=== PATIENT | male | born 1960 | race African-American/Black ===

== ENCOUNTER 2019-05-22 02:37 | Emergency (ER) | payer MEDICAID ==
[~2019-05-22] VITALS: Ht 180.3 cm; Wt 100.0 kg
[2019-05-22] MEDS ORDERED: KETOROLAC 60MG/2ML VIAL IM ONE (03:45)
[2019-05-22] MEDS ORDERED: DIAZEPAM 2 MG TABLET PO NR (04:00)
[2019-05-22 04:33] VITALS: BP 125/75
== END 2019-05-22 04:35 | disposition home or self-care (01) ==
LOC: ER 02:37
DX: S13.4XXA Sprain of ligaments of cervical spine, initial encounter (principal); X58.XXXA Exposure to other specified factors, initial encounter; Y93.89 Activity, other specified; Y92.89 Other specified places as the place of occurrence of the external cause; Y99.8 Other external cause status
CPT/HCPCS: 96372; 99283; J1885

== ENCOUNTER 2019-08-05 23:26 | Emergency (ER) | payer MEDICAID ==
[~2019-08-05] VITALS: Ht 182.9 cm; Wt 95.0 kg
[2019-08-06 04:01] VITALS: BP 119/55
== END 2019-08-06 04:01 | disposition home or self-care (01) ==
LOC: ER 23:26
DX: J06.9 Acute upper respiratory infection, unspecified (principal)
CPT/HCPCS: 99282

== ENCOUNTER 2020-03-22 00:25 | Inpatient (IN) | payer MEDICAID ==
[~2020-03-22] VITALS: Ht 185.4 cm; Wt 82.1 kg
[2020-03-22] MEDS ORDERED: ASPIRIN 81MG TABLET PO ONE (01:45)
[2020-03-22 02:05] LABS: BASOPHILS % 0.3 % (0.0-2.0); EOSINOPHILS % 5.5 % (0.0-5.0); HEMATOCRIT. 22.1 % (42.0-52.0); HEMOGLOBIN. 7.8 g/dL (14.0-18.0); LYMPHOCYTES % 63.6 % (20.0-50.0); MEAN CORPUSCULAR HEMOGLOBIN 42.5 pg (28.0-32.0); MEAN CORPUSCULAR VOLUME 120.8 fL (80.0-94.0); MONOCYTES % 2.9 % (2.0-8.0); NEUTROPHILS % 27.7 % (40.0-76.0); RED BLOOD CELL COUNT 1.83 mill/uL (4.7-6.1); RED CELL DISTRIBUTION WIDTH 14.8 % (11.6-14.6)
[2020-03-22 02:08] LABS: CHLORIDE 104 mEq/L (98-107)
[2020-03-22] MEDS ORDERED: FAMOTIDINE 20MG TABLET PO ONE (03:30)
[2020-03-22 05:39] LABS: PLATELET 88 x1000/uL (130-400)
[2020-03-22 05:42] LABS: PLATELET ESTIMATE NORMAL
[2020-03-22 08:00] VITALS: BP 101/56
[2020-03-22 08:35] VITALS: BP 101/56
[2020-03-22] MEDS ORDERED: ONDANSETRON HCL 4MG/2ML INJ IV PRN (11:45)
[2020-03-22] MEDS ORDERED: ACETAMINOPHEN 325MG TABLET PO PRN (11:45)
[2020-03-22 15:23] LABS: CLARITY URINE CLEAR (CLEAR); COLOR URINE YELLOW (YELLOW); KETONES URINE NEGATIVE (NEGATIVE); LEUKOCYTE ESTERASE URINE 2+ (NEGATIVE); NITRITE URINE POSITIVE (NEGATIVE); OCCULT BLOOD URINE TRACE (NEGATIVE); PROTEIN URINE NEGATIVE (NEGATIVE); SPECIFIC GRAVITY URINE 1.012 (1.005-1.030); UROBILINOGEN URINE >8.0 E.U./dL (0.2-1.0)
[2020-03-22 15:32] LABS: *AMPHETAMINES SCREEN URINE NEGATIVE (NEGATIVE); *BARBITURATES SCREEN URINE NEGATIVE (NEGATIVE)
[2020-03-22 15:33] LABS: *BENZODIAZEPINES SCREEN URINE NEGATIVE (NEGATIVE); *COCAINE SCREEN URINE NEGATIVE (NEGATIVE); CANNABINOID URINE SCREEN NEGATIVE (NEGATIVE); METHADONE URINE SCREEN NEGATIVE (NEGATIVE); OPIATES URINE SCREEN NEGATIVE (NEGATIVE); PHENCYCLIDINE URINE SCREEN NEGATIVE (NEGATIVE)
[2020-03-22 15:44] LABS: HEPATITIS B SURFACE ANTIGEN NEGATIVE
[2020-03-22 16:14] LABS: HEPATITIS A AB IGM NEGATIVE (NEGATIVE)
[2020-03-22] MEDS ORDERED: CEFTRIAXONE 1 G PREMIX 50 ML IV SCH (17:30)
[2020-03-22] MEDS ORDERED: CEFTRIAXONE 1,000 MG in DEXTROSE 5% WATER 50 ML IV SCH (20:00)
[2020-03-23] MEDS ORDERED: LEVOTHYROXINE SODIUM 50MCG TABLET PO SCH (07:20)
== END 2020-03-22 17:39 | disposition left against medical advice (07) | DRG 463 ==
LOC: ER 00:25 → 6EST 03:38 → ENRESERV 07:18
PROVIDERS: ADMIT Internal Medicine; ATTEND Internal Medicine
DX: N39.0 Urinary tract infection, site not specified (principal); D61.818 Other pancytopenia; E03.9 Hypothyroidism, unspecified; E78.1 Pure hyperglyceridemia; K76.0 Fatty (change of) liver, not elsewhere classified; N20.0 Calculus of kidney
CPT/HCPCS: 36415; 71045; 76700; 80053; 80061; 80305; 81003; 83880; 84443; 84484; 85025; 86705; 86709; 86803; 87340; 93005; 97162; 99285; J0696; J7060

== ENCOUNTER 2025-01-19 23:29 | Emergency (ER) | payer OTHER, MEDICAID ==
[2025-01-20 00:14] VITALS: BP 126/72; PULSE 53; RESP 18; TEMP 36.6; O2SAT 98
[2025-01-20] MEDS ORDERED: IBUP-2030 MT (00:32)
== END 2025-01-20 00:39 | disposition home or self-care (01) ==
LOC: ER 23:29
DX: M10.071 Idiopathic gout, right ankle and foot (principal); M10.072 Idiopathic gout, left ankle and foot
CPT/HCPCS: 99282

== ENCOUNTER 2025-04-20 04:08 | Emergency (ER) | payer MEDICAID, MEDICARE, OTHER ==
[~2025-04-20] VITALS: Ht 188 cm; Wt 95.0 kg
[~2025-04-20 04:08] MED LIST: IBUP-2030 MT
[2025-04-20 04:14] VITALS: O2SAT 100
[2025-04-20] MEDS ORDERED: HYDR-4001 MT (07:57)
[2025-04-20 09:04] VITALS: BP 134/50; PULSE 48; RESP 16; TEMP 36.8; O2SAT 100
== END 2025-04-20 09:08 | disposition home or self-care (01) ==
LOC: ER 04:08
DX: M10.9 Gout, unspecified (principal); Z76.0 Encounter for issue of repeat prescription; Z79.899 Other long term (current) drug therapy
CPT/HCPCS: 99281